=== PATIENT | female | born 1945 ===

== ENCOUNTER → 2018-04-24 17:45 | Outpatient (REF) | payer MEDICARE, SELFPAY ==
[2018-04-24 18:14] LABS: Add Manual Diff / Slide Review NO; Basophils Percent Auto 0.2 % (0-2); Eosinophils Percent Auto 0.3 % (2-4); Hematocrit 42.7 % (36-46); Hemoglobin 13.5 g/dL (12.0-16.0); Lymphocytes Percent Auto 15.6 % (25-40); Mean Corpuscular HGB Conc 31.7 % (30-36); Mean Corpuscular Hemoglobin 25.4 PG (26-34); Mean Corpuscular Volume 80.3 fL (80-100); Monocytes Percent Auto 2.6 % (3-14); Neutrophils Absolute Auto 11500 /uL (3000-5900); Neutrophils Percent Auto 81.3 % (50-75); Platelet Count 507 X10^3/uL (150-400); Red Blood Cell Count 5.31 X10^6/uL (4.0-5.2); Red Cell Distribution Width 19.4 % (11.6-14.8); White Blood Cell Count 14.1 X10^3/uL (4.5-11.0)
[2018-04-24 18:23] LABS: Alanine Aminotransferase 31 IU/L (9-52); Albumin 4.9 g/dL (3.5-5.0); Albumin Globulin Ratio 1.6 (1.0-2.8); Alkaline Phosphatase 73 U/L (38-126); Aspartate Aminotransferase 31 IU/L (14-36); BUN Creatinine Ratio 27.5 (6-22); Bilirubin Total 0.6 mg/dL (0.2-1.3); Blood Urea Nitrogen 22 mg/dL (7-17); Calcium 10.2 mg/dL (8.4-10.2); Carbon Dioxide 26 mmol/L (22-32); Chloride 100 mmol/L (98-107); Cholesterol 253 mg/dL (140-199); Estimated Glomerular Filt Rate > 60.0 mL/min (>60); Glucose 84 mg/dL (80-110); HDL Cholesterol 90 mg/dL (40-60); HEMOLYSIS 38 (0-50); LDL Cholesterol Calculated 131 mg/dL (<100); Magnesium 1.6 mg/dL (1.6-2.3); Potassium 4.7 mmol/L (3.4-5.1); Sodium 141 mmol/L (137-145); Total Protein 7.9 g/dL (6.3-8.2); Triglycerides 161 mg/dL (35-150)
[2018-04-24 19:21] LABS: Hemoglobin A1C% w Est Avg Glu 5.2 % (4.0-6.0)
== END ==
LOC: LAB 17:45
PROVIDERS: Visit Provider Specialist
DX: I10 Essential (primary) hypertension (principal); R73.01 Impaired fasting glucose; M15.9 Polyosteoarthritis, unspecified; K21.9 Gastro-esophageal reflux disease without esophagitis
CPT/HCPCS: 36415; 80053; 80061; 83036; 83735; 84550; 85025